=== PATIENT | female | born 1965 | race Caucasian/White ===

== ENCOUNTER 2016-08-18 17:16 | Observation (INO) | payer BC ==
[~2016-08-18] VITALS: Ht 162.6 cm; Wt 59.0 kg
--- NOTE | ~2016-08-18 | HP ---
ADMIT: 08/18/2016 RM/LOC: [facility] MR#: [id number] [address] [address] EMILIA JOHNSTON [address] [place] [id number] Pre-OP History and Physical SEX: F AGE: 51 : 1965 Corrected: 08/18/2016 2203 ajf DATE OF SERVICE: PREOPERATIVE DIAGNOSIS: Probable acute appendicitis. HISTORY OF PRESENT ILLNESS: This patient is a 51-year-old female with a fairly classic clinical history of abdominal pain starting off generalize, slowly localized to the right lower quadrant, nausea, and not feeling well. Low grade fever, low white count with rebound in right lower quadrant, positive Rovsing, and positive heel tap. Had a long discussion with her and her about possibly doing a CAT scan, which is our best test ahead of time, but with her physical findings, lab, and clinical history, I would be comfortable taking her to the operating room for laparoscopic appendectomy. I did discuss with them that we would take her appendix out even if it was negative. There maybe a ruptured ovarian cyst or something of that nature. We would not know for sure until we got there. Hospital course, postoperative course discussed all that as well. Originally, they discussed one to go ahead and get a CAT scan, and now she has changed her mind and just wants to proceed with surgery. Risks, benefits, possible complications, and alternatives were discussed. She understands and wishes to proceed. PAST MEDICAL HISTORY: Significant for endometriosis, she has had exploratory laparoscopy, and she has had tonsils done in the past. She denies any other medical issues. She takes control and Probiotics. ALLERGIES: SHE HAS NO KNOWN DRUG ALLERGIES. SOCIAL HISTORY: Denies any significant tobacco, alcohol, or illicit drugs. FAMILY HISTORY: Noncontributory. REVIEW OF SYSTEMS: Positive for all the above, everything else is negative. ADMIT: 08/18/2016 RM/LOC: [facility] MR#: [id number] [address] [address] EMILIA JOHNSTON [address] [place] [id number] Pre-OP History and Physical SEX: F AGE: 51 : 1965 PHYSICAL EXAMINATION: GENERAL: She is alert. She is oriented. She is in some mild distress. HEENT: Her sclerae are nonicteric. Extraocular muscles are intact. CHEST: Clear anteriorly. HEART: Regular rate and rhythm without murmur. ABDOMEN: Thin, soft. Rebound in right lower quadrant. Positive Rovsing's. EXTREMITIES: No clubbing, cyanosis, or edema. ASSESSMENT AND PLAN: Exploratory laparoscopy and laparoscopic appendectomy, possible open. Dm Juarez MD/ riley JOB #: [id number] CC: Dm Juarez, Attending Physician Dm Slater, Family Physician Corrected: 08/18/2016 2203 [facility]
[2016-08-20] MEDS ORDERED: ZOFRAN ODT4 MG PO (12:59)
[2016-08-20] MEDS ORDERED: NORCO 5-325 TA1 EACH PO (12:59)
--- NOTE | 2016-09-05 08:14 | ER ---
ADMIT: 08/18/2016 RM/LOC: [address]26 [facility] MR#: [id number] [address] [address] EMILIA JOHNSTON [address] [place] [address] Emergency Room Report SEX: F AGE: 51 : 1965 DATE: 08/18/2016 ADDENDUM: This patient comes into the ER because today at 1:00, she started having abdominal pain. It is in the right side of her belly, it has gotten increasingly worse. She now has a fever and is vomiting. On physical exam, she has guarding and rebound tenderness. Her pain is located right at McBurney's point. She has no tenderness to percussion of either flank area. Her white count was 13.4. Her test was negative. Urinalysis had 3 wbc's. Her symptoms are consistent with appendicitis. I spoke with Dr. Juarez, he came in and examined the patient, will take the patient to surgery for appendicitis. Please see my T-sheet SRIRAM Kimball / Andrew Combs MD / riley JOB #: [id number] CC: Dm Juarez MD, Attending Physician Dm Slater MD, Family Physician
--- NOTE | 2016-09-09 15:54 | OR ---
ADMIT: 08/18/2016 RM/LOC: [address]26 [facility] MR#: [id number] [address] [address] EMILIA JOHNSTON [address] [place] [id number] Operative/Delivery Room Report SEX: F AGE: 51 : 1965 SURGERY DATE: 08/18/2016 SURGEON: Dm Juarez MD PREOPERATIVE DIAGNOSIS: Probable acute appendicitis. POSTOPERATIVE DIAGNOSIS: Question of early acute appendicitis. PROCEDURE: Laparoscopic appendectomy as well as removal of some little adhesive kind of scarred tissue from the fallopian tube on the right side, seen in picture #4 on the first set of pictures. I in case had laparoscopic appendectomy first. ANESTHESIA: General endotracheal tube anesthesia. ESTIMATED BLOOD LOSS: 20 mL or less. INDICATION FOR PROCEDURE: Please see H and P. After the risks, benefits, possible complications, and the alternatives had been explained, and informed consent had been obtained, the patient was taken back to the operating room, underwent general endotracheal tube anesthesia, and the surgical field was prepped and draped in a sterile manner. An infraumbilical incision was made. The Veress needle was inserted. The abdomen was insufflated with CO2. Once there was adequate insufflation, a 5 mm port was placed. The camera was placed through this port site. Under direct visualization, I placed a 5 mm suprapubic and an 11 mm left lower quadrant port. You can see in the first picture, there were some adhesions. These were kind of cleaned down a little bit off the anterior abdominal wall, right lateral side and behind this, the cecum was there. It appears that I would save kind of proximal quarter of the appendix appeared acutely inflamed with low adhesion to it. This was freed up, made a window in the mesoappendix, come across the base with an Endo RO stapler, then across the mesoappendix with an Endo RO stapler, I placed EndoCatch bag and removed through the epigastric port or through the left lower quadrant port site. Irrigated with much irrigation as possible. I then inspected the pelvis. It was all irrigated out. Inspected the tube and ovaries, there was no significant blood. There was a little murky fluid down in the pelvis that was cleaned up and looking at the right tube and ovary, you ADMIT: 08/18/2016 RM/LOC: 626 [facility] MR#: [id number] [address] [address] [facility] [address] [place] [address] Operative/Delivery Room Report SEX: F AGE: 51 : 1965 can see there a little adhesive type couple of bands here, may be inflammatory changes she said. She has had a history of endometriosis and maybe that as well. I snipped this off and it was removed and will be sent as well, but the ovary otherwise looked okay. I did not see any other problems. Left side in the second set of pictures, you can see left tube and ovary there and then the uterus there in picture #2. After I cleaned out all the pelvis, reinspected where the appendix was removed as seen in picture #3. Everything was dried along with staple lines, cleaned up any of the fluid, injected 0.5% Marcaine for pain control in the incision sites. Closed the fascia of the left lower quadrant port site with an 0 Polysorb suture using the suture passer, and the skin was all closed with 4-0 Monocryl. Tolerated the procedure well, was extubated and taken to recovery room in stable and satisfactory condition. Dm Juarez MD/ riley JOB #: [id number] CC: Dm Juarez, Attending Physician Dm Slater, Family Physician
== END 2016-08-19 11:47 | disposition home or self-care (01) ==
LOC: ER 17:16 → SSS 20:50 → 6PED 23:21
PROVIDERS: ADMIT Surgery
PROC: 0DTJ4ZZ Resection of Appendix, Percutaneous Endoscopic Approach (ICD-10-PCS; principal; 2016-08-18)
DX: K35.80 Unspecified acute appendicitis (principal); N70.01 Acute salpingitis; Z98.890 Other specified postprocedural states; Z79.899 Other long term (current) drug therapy